=== PATIENT | female | born 1950 | race American Indian/Alaskan Native ===

== ENCOUNTER 2018-09-10 21:10 | Observation (INO) | payer MEDICARE, MEDICAID ==
--- NOTE | 2018-09-10 21:20 | C.PDOC ---
History Of Present Illness Patient is sent to the ED from [facility] for evaluation of hemoglobin of 7.7. Patient denies any medical complaints. Time Seen by Provider: 09/10/18 21:19 Chief Complaint (Nursing): Abnormal Labs History Per: Patient History/Exam Limitations: no limitations Onset/Duration Of Symptoms: Days Current Symptoms Are (Timing): Still Present Recent travel outside of the [place]: No Additional History Per: Patient Past Medical History Reviewed: Historical Data, Nursing Documentation, Vital Signs Vital Signs: Last Vital Signs Temp 98.7 F 09/10/18 21:18 Pulse 83 09/10/18 21:18 Resp 16 09/10/18 21:18 BP 140/77 09/10/18 21:18 Pulse Ox 100 09/10/18 21:18 - Medical History PMH: HTN, Hypothyroidism, Schizophrenia Surgical History: No Surg Hx Family History: States: Unknown Family Hx - Social History Hx Alcohol Use: No Hx Substance Use: No Review Of Systems Constitutional: Negative for: Fever, Chills Cardiovascular: Negative for: Chest Pain, Palpitations Respiratory: Negative for: Shortness of Breath Gastrointestinal: Negative for: Nausea, Vomiting, Abdominal Pain Neurological: Negative for: Weakness, Numbness, Headache, Dizziness Physical Exam - Physical Exam Appears: Non-toxic Skin: Warm, Dry, Pale Head: Normacephalic Eye(s): bilateral: Conjunctiva Pale Oral Mucosa: Moist Teeth: Other (poor dentition) Neck: Trachea Midline, Supple Chest: Symmetrical Cardiovascular: Rhythm Regular Respiratory: No Rales, No Rhonchi, No Wheezing Gastrointestinal/Abdominal: Soft, No Tenderness, No Distention, No Guarding, No Rebound Rectal: Other (black tarry stool) Back: No CVA Tenderness Extremity: Capillary Refill (< 2 seconds) Extremity: Right: Other (heel pressure ulcer), Bilateral: Atraumatic, Normal ROM Pulses: Left Dorsalis Pedis: Normal, Right Dorsalis Pedis: Normal Neurological/Psych: Oriented x3 Gait: Unable To Assess ED Course And Treatment - Laboratory Results Result Diagrams: 09/10/18 22:10 09/10/18 22:10 ECG: Interpreted By Me, Viewed By Me ECG Rhythm: Sinus Rhythm (79), 1st Degree HB, Nonspecific Changes O2 Sat by Pulse Oximetry: 100 (On RA) Pulse Ox Interpretation: Normal - Radiology CXR: Interpreted by Me, Viewed By Me Progress Note: Plan: - Labs. - EKG. - CXR. - UA Disposition Discussed With Dr.: Rajesh Brooke Comment: accepted the pt on his service and took over the care at 11:06 PM Doctor Will See Patient In The: Hospital Counseled Patient/Family Regarding: Studies Performed, Diagnosis - Disposition Disposition: HOSPITALIZED Disposition Time: 21:20 Condition: GUARDED Forms: [facility] (Swedish) - POA Present On Arrival: Pressure Ulcer - Clinical Impression Clinical Impression: Anemia, GI bleed - Scribe Statement The provider has reviewed the documentation as recorded by the Scribe Abhishek Chappell All medical record entries made by the Scribe were at my direction and personally dictated by me. I have reviewed the chart and agree that the record accurately reflects my personal performance of the history, physical exam, medical decision making, and the department course for this patient. I have also personally directed, reviewed, and agree with the discharge instructions and disposition. Decision To Admit - Pt Status Changed To: Hospital Disposition Of: Observation - . Bed Request Type: Telemetry Admitting Physician: Rajesh Brooke Patient Diagnosis: Anemia, GI bleed, Leukopenia
[2018-09-10] MEDS ORDERED: Sodium Chloride 0.9% 1,000 ML IV ONE (21:49)
[2018-09-10] MEDS ORDERED: Pantoprazole 80 MG in Sodium Chloride 0.9% 100 ML IVP SCH (22:00)
[2018-09-10] MEDS ORDERED: Sodium Chloride 0.9% 1,000 ML ONE (22:12)
[2018-09-10 22:13] LABS: BASO % 1.5 % (0.0-2.0); EOS # 0.4 K/uL (0.0-0.7); EOS % 12.7 % (0.0-4.0); HEMOGLOBIN 7.6 g/dL (11.0-16.0); LYMPH # 0.9 K/uL (1.0-4.3); LYMPH % 31.7 % (20.0-40.0); MEAN CELL VOLUME 85.9 fL (81.0-99.0); MEAN CORPUSCULAR HEMOGLOBIN 27.3 pg (27.0-31.0); MEAN CORPUSCULAR HGB CONC 31.8 g/dL (33.0-37.0); MEAN PLATELET VOLUME 9.1 fL (7.2-11.7); MONO # 0.3 K/uL (0.0-0.8); MONO % 12.1 % (0.0-10.0); NEUT # 1.2 K/uL (1.8-7.0); NRBC % 0.1 % (0.0-2.0); RBC 2.77 Mil/uL (3.80-5.20); RED CELL DISTRIBUTION WIDTH 29.5 % (11.5-14.5); WHITE BLOOD COUNT 2.9 K/uL (4.8-10.8)
[2018-09-10 22:25] LABS: INR 1.1; PROTHROMBIN TIME 12.4 SECONDS (9.7-12.2)
[2018-09-10 22:26] LABS: ALBUMIN 3.6 g/dL (3.5-5.0); CALCIUM 9.1 mg/dl (8.6-10.4)
--- NOTE | 2018-09-11 08:31 | RAD ---
Date of service: 09/10/2018 PROCEDURE: CHEST RADIOGRAPH, 1 VIEW HISTORY: SOB COMPARISON: None available. FINDINGS: LUNGS: Clear. PLEURA: No pneumothorax or pleural fluid seen. CARDIOVASCULAR: No aortic atherosclerotic calcification present. Normal. OSSEOUS STRUCTURES: No significant abnormalities. VISUALIZED UPPER ABDOMEN: Normal. OTHER FINDINGS: None. IMPRESSION: No active disease.
--- NOTE | 2018-09-11 09:49 | CP.PCM.CON ---
<JonathanzeyneplivSteve - Last Filed: 09/11/18 13:40> History of Present Illness - History of Present Illness History of Present Illness: GI Fellow PGY4, consult note. Lyudmila Larose is a pleasant 68F who presented from detention with weakness and low Hb. Patient states her legs felt weak, but she denied lightheadedness, dizziness. It was reported her detention sent her to ED for Hb of 7.7. Hb was 7.6 on our initial labs. Patient has been HDS. She states her last bowel movement was 2 days ago, and she did not check the color. ED stated her rectal showed black tarry stool. Her med list shows iron pills, but patient denies taking this medication. She denies chronic NSAID use. Patient states she has had anemia before and a few blood transfusions in the last few months. She states she had EGD at [facility] 3 weeks ago and does not report any findings. Before that, she states she had colonoscopy 2-3 months ago at [facility] and again does not report and findings. 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 PMHx - Iron deficiency anemia, HTN, constipation, psych disorder PSHx - as above SocHx - Denies tobacco, alcohol. Lives at detention. 12pt ROS completed and negative except for above. Past Patient History - Past Social History Smoking Status: Never Smoked - CARDIAC Hx Hypertension: Yes - ENDOCRINE/METABOLIC Hx Hypothyroidism: Yes - INTEGUMENTARY Other/Comment: malignant neoplasm of stomach - GASTROINTESTINAL Hx Constipation: Yes Other/Comment: malignant neoplasm of stomach - PSYCHIATRIC Hx Schizophrenia: Yes Hx Substance Use: No Meds Allergies/Adverse Reactions: Allergies Allergy/AdvReac Type Severity Reaction Status Date / Time No Known Allergies Allergy Verified 09/10/18 23:37 - Medications Medications: Current Medications Pantoprazole Sodium 80 mg/ (Sodium Chloride) 100 mls @ 10 mls/hr IV .Q10H HELEN Physical Exam - Constitutional Appears: Non-toxic, No Acute Distress - Head Exam Head Exam: ATRAUMATIC, NORMAL INSPECTION - Eye Exam Eye Exam: EOMI, Normal appearance - Respiratory Exam Respiratory Exam: Clear to Auscultation Bilateral, NORMAL BREATHING PATTERN - Cardiovascular Exam Cardiovascular Exam: REGULAR RHYTHM, +S1, +S2, Systolic Murmur - GI/Abdominal Exam GI & Abdominal Exam: Normal Bowel Sounds, Organomegaly, Soft. absent: Tenderness - Rectal Exam Rectal Exam: Hemorrhoids. absent: Black Stool, Bloody Stool - Extremities Exam Extremities exam: Negative for: normal inspection, pedal edema - Neurological Exam Neurological exam: Alert, CN II-XII Intact, Oriented x3 - Psychiatric Exam Psychiatric exam: Normal Affect, Normal Mood - Skin Skin Exam: Dry, Normal Color Results - Vital Signs Recent Vital Signs: Last Vital Signs Temp 97.9 F 09/11/18 09:40 Pulse 63 09/11/18 09:40 Resp 18 09/11/18 09:40 BP 172/91 H 09/11/18 09:40 Pulse Ox 100 09/11/18 07:00 - Labs Result Diagrams: 09/10/18 22:10 09/10/18 22:10 Labs: Laboratory Results - last 24 hr 09/10/18 09/10/18 09/10/18 21:53 22:10 22:10 WBC 2.9 L RBC 2.77 L Hgb 7.6 L Hct 23.8 L MCV 85.9 MCH 27.3 MCHC 31.8 L RDW 29.5 H Plt Count 204 MPV 9.1 Neut % (Auto) 42.0 L Lymph % (Auto) 31.7 [place] % (Auto) 12.1 H Eos % (Auto) 12.7 H Baso % (Auto) 1.5 Neut # (Auto) 1.2 L Lymph # (Auto) 0.9 L [place] # (Auto) 0.3 Eos # (Auto) 0.4 Baso # (Auto) 0.0 PT 12.4 H INR 1.1 APTT 35.0 H Sodium Potassium Chloride Carbon Dioxide Anion Gap BUN Creatinine Est GFR ( Amer) Est GFR (Non-Af Amer) Random Glucose Calcium Total Bilirubin AST ALT Alkaline Phosphatase Total Protein Albumin Globulin Albumin/Globulin Ratio Stool Occult Blood Positive H Blood Type Antibody Screen Antibody Identification 09/10/18 09/10/18 22:10 22:10 WBC RBC Hgb Hct MCV MCH MCHC RDW Plt Count MPV Neut % (Auto) Lymph % (Auto) [place] % (Auto) Eos % (Auto) Baso % (Auto) Neut # (Auto) Lymph # (Auto) [place] # (Auto) Eos # (Auto) Baso # (Auto) PT INR APTT Sodium 136 Potassium 4.3 Chloride 106 Carbon Dioxide 27 Anion Gap 8 L BUN 27 H Creatinine 1.2 Est GFR ( Amer) 54 Est GFR (Non-Af Amer) 45 Random Glucose 95 Calcium 9.1 Total Bilirubin 0.4 AST 19 ALT 8 L Alkaline Phosphatase 54 Total Protein 7.2 Albumin 3.6 Globulin 3.7 Albumin/Globulin Ratio 1.0 Stool Occult Blood Blood Type O POSITIVE Antibody Screen Positive Antibody Identification Anti Jka Assessment & Plan - Assessment and Plan (Free Text) Assessment: #Chronic anemia #Suspected iron deficiency anemia #Positive occult stool #Constipation #Psych disorder PLAN: -No obvious active GI bleed. Rectal negative. Patient reports recent EGD and colonoscopy at [facility] and [facility] and reportedly normal. -Continue to monitor Hb -1u pRBC ordered -Recommend PPI IV daily -Avoid blood thinners and NSAIDs at this time. -Patient refused EGD today. -Start diet -Will obtain records Case to be discussed with Dr. Ahuja, see attestation. - Date & Time Date: 09/11/18 Time: 09:51 <Pradip Ahuja Y - Last Filed: 09/11/18 14:29> Meds - Medications Medications: Current Medications Amlodipine Besylate (Norvasc) 10 mg PO DAILY HELEN Aripiprazole (Abilify) 15 mg PO DAILY [facility] Home Med (Iron Sucrose [Venofer]) 100 mg IV DAILY HELEN Pantoprazole Sodium 80 mg/ (Sodium Chloride) 100 mls @ 10 mls/hr IV .Q10H HELEN Last Admin: 09/11/18 12:27 Dose: 10 mls/hr Magnesium Hydroxide (Milk Of Magnesia) 30 ml PO DAILY HELEN Pantoprazole Sodium (Protonix Ec Tab) 40 mg PO DAILY [facility] Results - Vital Signs Recent Vital Signs: Last Vital Signs Temp 98.5 F 09/11/18 12:08 Pulse 87 09/11/18 12:08 Resp 18 09/11/18 12:08 BP 175/97 H 09/11/18 12:08 Pulse Ox 100 09/11/18 07:00 - Labs Result Diagrams: 09/10/18 22:10 09/10/18 22:10 Labs: Laboratory Results - last 24 hr 09/10/18 09/10/18 09/10/18 21:53 22:10 22:10 WBC 2.9 L RBC 2.77 L Hgb 7.6 L Hct 23.8 L MCV 85.9 MCH 27.3 MCHC 31.8 L RDW 29.5 H Plt Count 204 MPV 9.1 Neut % (Auto) 42.0 L Lymph % (Auto) 31.7 [place] % (Auto) 12.1 H Eos % (Auto) 12.7 H Baso % (Auto) 1.5 Neut # (Auto) 1.2 L Lymph # (Auto) 0.9 L [place] # (Auto) 0.3 Eos # (Auto) 0.4 Baso # (Auto) 0.0 PT 12.4 H INR 1.1 APTT 35.0 H Sodium Potassium Chloride Carbon Dioxide Anion Gap BUN Creatinine Est GFR ( Amer) Est GFR (Non-Af Amer) Random Glucose Calcium Total Bilirubin AST ALT Alkaline Phosphatase Total Protein Albumin Globulin Albumin/Globulin Ratio Urine Color Urine Clarity Urine pH Ur Specific [place] Urine Protein Urine Glucose (UA) Urine Ketones Urine Blood Urine Nitrate Urine Bilirubin Urine Urobilinogen Ur Leukocyte Esterase Urine RBC (Auto) Ur Squamous Epith Cells Urine Bacteria Stool Occult Blood Positive H Blood Type Antibody Screen Antibody Identification 09/10/18 09/10/18 09/11/18 22:10 22:10 11:55 WBC RBC Hgb Hct MCV MCH MCHC RDW Plt Count MPV Neut % (Auto) Lymph % (Auto) [place] % (Auto) Eos % (Auto) Baso % (Auto) Neut # (Auto) Lymph # (Auto) [place] # (Auto) Eos # (Auto) Baso # (Auto) PT INR APTT Sodium 136 Potassium 4.3 Chloride 106 Carbon Dioxide 27 Anion Gap 8 L BUN 27 H Creatinine 1.2 Est GFR ( Amer) 54 Est GFR (Non-Af Amer) 45 Random Glucose 95 Calcium 9.1 Total Bilirubin 0.4 AST 19 ALT 8 L Alkaline Phosphatase 54 Total Protein 7.2 Albumin 3.6 Globulin 3.7 Albumin/Globulin Ratio 1.0 Urine Color Straw Urine Clarity Clear Urine pH 6.0 Ur Specific [place] 1.010 Urine Protein Negative Urine Glucose (UA) Normal Urine Ketones Negative Urine Blood Negative Urine Nitrate Negative Urine Bilirubin Negative Urine Urobilinogen Normal Ur Leukocyte Esterase Neg Urine RBC (Auto) < 1 Ur Squamous Epith Cells < 1 Urine Bacteria Rare Stool Occult Blood Blood Type O POSITIVE Antibody Screen Positive Antibody Identification Anti Pattika Attending/Attestation - Attestation I have personally seen and examined this patient.: Yes I have fully participated in the care of the patient.: Yes I have reviewed all pertinent clinical information: Yes Notes (Text): 09/11/18 14:23 I have seen and examined patient with GI fellow. Agree with above documentation with the following additions. In brief, this is a 68 year old female with history of HTN, iron deficiency anemia who is sent from detention for evaluation of weakness. She reports feeling extreme lower extremity weakness and fatigue but denies syncope, abdominal pain, nausea, vomiting, fever/chills, weight loss, melena, or change in recent bowel habits. She apparently had a recent colonoscopy at [facility] 3 months ago and an EGD at [facility] 1 month ago without significant findings as per patient. Family history: reviewed, denies history of GI malignancy HTN Iron deficiency anemia Stool occult blood positive - Diet as tolerated - Patient scheduled to receive PRBC transfusion, continue to monitor H/H - Rectal exam performed today shows light brown soft stool without presence of palpable lesions - Patient was offered EGD today to rule out potential upper GI bleeding source, however she declined procedure. Risks of this were discussed with patient in detail and she understands and is willing to accept these risks. - Will attempt to obtain endoscopic reports from [facility] and [facility] - Will continue to monitor patient clinical course
[2018-09-11 12:24] LABS: SQUAMOUS EPITHIAL < 1 /hpf (0-5); URINE BACTERIA RARE (<OCC); URINE BILIRUBIN NEGATIVE (NEGATIVE); URINE BLOOD NEGATIVE (NEGATIVE); URINE CLARITY Clear (Clear); URINE COLOR Straw (YELLOW); URINE GLUCOSE (UA) NORMAL (Normal); URINE LEUKOCYTE ESTERASE NEG Leu/uL (Negative); URINE PROTEIN NEGATIVE (NEGATIVE); URINE UROBILINOGEN NORMAL mg/dL (0.2-1.0)
[2018-09-11] MEDS: Pantoprazole 80 MG in Sodium Chloride 0.9% 100 ML IV SCH ×2 (12:27→18:16)
[2018-09-11] MEDS ORDERED: Pantoprazole 40 mg EC Tab PO SCH (13:00)
[2018-09-11] MEDS: Magnesium Hydroxide Susp 30 ml UD PO SCH (14:50)
--- NOTE | 2018-09-11 16:23 | CP.PCM.HP ---
History of Present Illness - History of Present Illness History of Present Illness: Patient is 68-year-old non-smoker non-EtOH abuser with history of anemia history of hypertension history of some psych disorders on some medications came in because of her with history of low hemoglobin lethargy and weakness especially bilateral lower limb so patient came to the emergency room patient denies any syncope denies any fall denies any trauma denies any nausea vomiting denies any chest pain Patient in the emergency room was 7.6 which was same as before eventually patient had a bloody movements recently so came to the emergency room and eventually patient was admitted patient also on the iron pill and patient has a black stools patient is a 9 pill secondary to iron tablet Patient had a colonoscopy done to 3 weeks ago at [facility] [place] reports not aware Status post patient seen by a GI doctor Patient refused endoscopy today 12 points of review of system negative Present on Admission - Present on Admission Any Indicators Present on Admission: No Review of Systems - Constitutional Constitutional: As Per HPI - EENT Eyes: As Per HPI Ears: As Per HPI Nose/Mouth/Throat: As Per HPI - Breasts Breasts: As Per HPI - Cardiovascular Cardiovascular: As Per HPI - Respiratory Respiratory: As Per HPI - Gastrointestinal Gastrointestinal: As Per HPI Past Patient History - Past Social History Smoking Status: Never Smoked - CARDIAC Hx Hypertension: Yes - ENDOCRINE/METABOLIC Hx Hypothyroidism: Yes - INTEGUMENTARY Other/Comment: malignant neoplasm of stomach - GASTROINTESTINAL Hx Constipation: Yes Other/Comment: malignant neoplasm of stomach - PSYCHIATRIC Hx Schizophrenia: Yes Hx Substance Use: No Meds Allergies/Adverse Reactions: Allergies Allergy/AdvReac Type Severity Reaction Status Date / Time No Known Allergies Allergy Verified 09/10/18 23:37 Physical Exam - Constitutional Appears: Well - Head Exam Head Exam: ATRAUMATIC - Eye Exam Eye Exam: EOMI Pupil Exam: Fixed - ENT Exam ENT Exam: Mucous Membranes Moist - Neck Exam Neck exam: Positive for: Full Rom - Respiratory Exam Respiratory Exam: Decreased Breath Sounds - Cardiovascular Exam Cardiovascular Exam: REGULAR RHYTHM, +S1, +S2 - GI/Abdominal Exam GI & Abdominal Exam: Diminished Bowel Sounds, Distended, Soft - Rectal Exam Rectal Exam: Deferred - Back Exam Back exam: NORMAL INSPECTION - Neurological Exam Neurological exam: Oriented x3 Results - Vital Signs Recent Vital Signs: Last Vital Signs Temp 98.5 F 09/11/18 12:08 Pulse 87 09/11/18 12:08 Resp 18 04/26/19 12:08 BP 175/97 H 09/11/18 12:08 Pulse Ox 100 09/11/18 07:00 - Labs Result Diagrams: 09/10/18 22:10 09/10/18 22:10 Labs: Laboratory Results - last 24 hr 09/10/18 09/10/18 09/10/18 21:53 22:10 22:10 WBC 2.9 L RBC 2.77 L Hgb 7.6 L Hct 23.8 L MCV 85.9 MCH 27.3 MCHC 31.8 L RDW 29.5 H Plt Count 204 MPV 9.1 Neut % (Auto) 42.0 L Lymph % (Auto) 31.7 [place] % (Auto) 12.1 H Eos % (Auto) 12.7 H Baso % (Auto) 1.5 Neut # (Auto) 1.2 L Lymph # (Auto) 0.9 L [place] # (Auto) 0.3 Eos # (Auto) 0.4 Baso # (Auto) 0.0 PT 12.4 H INR 1.1 APTT 35.0 H Sodium Potassium Chloride Carbon Dioxide Anion Gap BUN Creatinine Est GFR ( Amer) Est GFR (Non-Af Amer) Random Glucose Calcium Total Bilirubin AST ALT Alkaline Phosphatase Total Protein Albumin Globulin Albumin/Globulin Ratio Urine Color Urine Clarity Urine pH Ur Specific [place] Urine Protein Urine Glucose (UA) Urine Ketones Urine Blood Urine Nitrate Urine Bilirubin Urine Urobilinogen Ur Leukocyte Esterase Urine RBC (Auto) Ur Squamous Epith Cells Urine Bacteria Stool Occult Blood Positive H Blood Type Antibody Screen Antibody Identification 09/10/18 09/10/18 09/11/18 22:10 22:10 11:55 WBC RBC Hgb Hct MCV MCH MCHC RDW Plt Count MPV Neut % (Auto) Lymph % (Auto) [place] % (Auto) Eos % (Auto) Baso % (Auto) Neut # (Auto) Lymph # (Auto) [place] # (Auto) Eos # (Auto) Baso # (Auto) PT INR APTT Sodium 136 Potassium 4.3 Chloride 106 Carbon Dioxide 27 Anion Gap 8 L BUN 27 H Creatinine 1.2 Est GFR ( Amer) 54 Est GFR (Non-Af Amer) 45 Random Glucose 95 Calcium 9.1 Total Bilirubin 0.4 AST 19 ALT 8 L Alkaline Phosphatase 54 Total Protein 7.2 Albumin 3.6 Globulin 3.7 Albumin/Globulin Ratio 1.0 Urine Color Straw Urine Clarity Clear Urine pH 6.0 Ur Specific [place] 1.010 Urine Protein Negative Urine Glucose (UA) Normal Urine Ketones Negative Urine Blood Negative Urine Nitrate Negative Urine Bilirubin Negative Urine Urobilinogen Normal Ur Leukocyte Esterase Neg Urine RBC (Auto) < 1 Ur Squamous Epith Cells < 1 Urine Bacteria Rare Stool Occult Blood Blood Type O POSITIVE Antibody Screen Positive Antibody Identification Anti Jka Assessment & Plan - Assessment and Plan (Free Text) Plan: Plan hemoglobin 7.6 23.8 Monitor H&H IV Protonix Patient's rectal examination is negative Patient reports to have a very recent EGD and colonoscopy at [facility] we will try to obtain report although patient claims its normal 1 unit of PRBCs ordered patient patient refused EGD today Continue amlodipine Continue Abilify Continue IV Venofer IV Protonix Magnesium hydroxide CBC CMP daily Monitor for the bleeding
[2018-09-11 17:29] VITALS: RESP 20
[2018-09-11] MEDS: Ferric Sodium Gluconat Complex 62.5 mg/5 ml Vial IVPB SCH (17:44)
[2018-09-12 01:33] VITALS: O2SAT 98
[2018-09-12] MEDS: Pantoprazole 80 MG in Sodium Chloride 0.9% 100 ML IV SCH (04:00)
[2018-09-12 07:49] LABS: BASO % 0.7 % (0.0-2.0); EOS # 0.3 K/uL (0.0-0.7); EOS % 11.1 % (0.0-4.0); HEMOGLOBIN 8.1 g/dL (11.0-16.0); LYMPH # 0.8 K/uL (1.0-4.3); LYMPH % 27.2 % (20.0-40.0); MEAN CELL VOLUME 86.4 fL (81.0-99.0); MEAN CORPUSCULAR HGB CONC 32.4 g/dL (33.0-37.0); MONO # 0.3 K/uL (0.0-0.8); MONO % 12.2 % (0.0-10.0); NEUT # 1.4 K/uL (1.8-7.0); NEUT % 48.8 % (50.0-75.0); RBC 2.89 Mil/uL (3.80-5.20); RED CELL DISTRIBUTION WIDTH 27.6 % (11.5-14.5); WHITE BLOOD COUNT 2.8 K/uL (4.8-10.8)
[2018-09-12] MEDS: Magnesium Hydroxide Susp 30 ml UD PO SCH (09:42)
[2018-09-12] MEDS: Ferric Sodium Gluconat Complex 62.5 mg/5 ml Vial IVPB SCH (09:42)
[2018-09-12] MEDS ORDERED: IRON SUCROSE 100 MG IV SCH (10:00)
--- NOTE | 2018-09-12 10:43 | CARD ---
APPROVED REPORT Date of service: 09/10/2018 EKG Measurement Heart [id number] <Conclusion> Normal sinus rhythm Minimal voltage criteria for LVH, may be normal variant Nonspecific T wave abnormality Abnormal ECG
[2018-09-12 11:38] LABS: BASO % 0.5 % (0.0-2.0); EOS # 0.3 K/uL (0.0-0.7); EOS % 9.5 % (0.0-4.0); HEMOGLOBIN 9.4 g/dL (11.0-16.0); LYMPH # 0.8 K/uL (1.0-4.3); LYMPH % 28.2 % (20.0-40.0); MEAN CELL VOLUME 86.6 fL (81.0-99.0); MEAN CORPUSCULAR HEMOGLOBIN 27.3 pg (27.0-31.0); MEAN CORPUSCULAR HGB CONC 31.5 g/dL (33.0-37.0); MEAN PLATELET VOLUME 9.1 fL (7.2-11.7); MONO # 0.4 K/uL (0.0-0.8); MONO % 12.9 % (0.0-10.0); NEUT # 1.5 K/uL (1.8-7.0); NEUT % 48.9 % (50.0-75.0); RBC 3.45 Mil/uL (3.80-5.20); RED CELL DISTRIBUTION WIDTH 27.7 % (11.5-14.5)
--- NOTE | 2018-09-12 13:12 | CP.PCM.DIS ---
Provider - Provider Date of Admission: 09/10/18 23:05 Attending physician: Rohan Brooke MD Consults: 09/10/18 23:33 Gastroenterology Consult Routine Comment: Consulting Provider: Pradip Ahuja Consulting Physician: Pradip Ahuja Reason for Consult: gi bleed Time Spent in preparation of Discharge (in minutes): 30 Hospital Course - Lab Results Lab Results: Most Recent Lab Values WBC 3.0 K/uL (4.8-10.8) L 09/12/18 11:15 RBC 3.45 Mil/uL (3.80-5.20) L 09/12/18 11:15 Hgb 9.4 g/dL (11.0-16.0) L 09/12/18 11:15 Hct 29.9 % (34.0-47.0) L 09/12/18 11:15 MCV 86.6 fL (81.0-99.0) 09/12/18 11:15 MCH 27.3 pg (27.0-31.0) 09/12/18 11:15 MCHC 31.5 g/dL (33.0-37.0) L 09/12/18 11:15 RDW 27.7 % (11.5-14.5) H 09/12/18 11:15 Plt Count 224 K/uL (130-400) 09/12/18 11:15 MPV 9.1 fL (7.2-11.7) 09/12/18 11:15 Neut % (Auto) 48.9 % (50.0-75.0) L 09/12/18 11:15 Lymph % (Auto) 28.2 % (20.0-40.0) 09/12/18 11:15 [place] % (Auto) 12.9 % (0.0-10.0) H 09/12/18 11:15 Eos % (Auto) 9.5 % (0.0-4.0) H 09/12/18 11:15 Baso % (Auto) 0.5 % (0.0-2.0) 09/12/18 11:15 Neut # (Auto) 1.5 K/uL (1.8-7.0) L 09/12/18 11:15 Lymph # (Auto) 0.8 K/uL (1.0-4.3) L 09/12/18 11:15 [place] # (Auto) 0.4 K/uL (0.0-0.8) 09/12/18 11:15 Eos # (Auto) 0.3 K/uL (0.0-0.7) 09/12/18 11:15 Baso # (Auto) 0.0 K/uL (0.0-0.2) 09/12/18 11:15 Differential Comment 09/12/18 11:15 PT 12.4 SECONDS (9.7-12.2) H 09/10/18 22:10 INR 1.1 09/10/18 22:10 APTT 35.0 SECONDS (21-34) H 09/10/18 22:10 Sodium 136 mmol/L (132-148) 09/10/18 22:10 Potassium 4.3 mmol/L (3.6-5.2) 09/10/18 22:10 Chloride 106 mmol/L (98-107) 09/10/18 22:10 Carbon Dioxide 27 mmol/L (22-30) 09/10/18 22:10 Anion Gap 8 (10-20) L 09/10/18 22:10 BUN 27 mg/dL (7-17) H 09/10/18 22:10 Creatinine 1.2 mg/dL (0.7-1.2) 09/10/18 22:10 Est GFR ( Amer) 54 09/10/18 22:10 Est GFR (Non-Af Amer) 45 09/10/18 22:10 Random Glucose 95 mg/dL (65-105) 09/10/18 22:10 Calcium 9.1 mg/dl (8.6-10.4) 09/10/18 22:10 Total Bilirubin 0.4 mg/dL (0.2-1.3) 09/10/18 22:10 AST 19 U/L (14-36) 09/10/18 22:10 ALT 8 U/L (9-52) L 09/10/18 22:10 Alkaline Phosphatase 54 U/L (38-126) 09/10/18 22:10 Total Protein 7.2 g/dL (6.3-8.3) 09/10/18 22:10 Albumin 3.6 g/dL (3.5-5.0) 09/10/18 22:10 Globulin 3.7 gm/dL (2.2-3.9) 09/10/18 22:10 Albumin/Globulin Ratio 1.0 (1.0-2.1) 09/10/18 22:10 Urine Color Straw (YELLOW) 09/11/18 11:55 Urine Clarity Clear (Clear) 09/11/18 11:55 Urine pH 6.0 (5.0-8.0) 09/11/18 11:55 Ur Specific [place] 1.010 (1.003-1.030) 09/11/18 11:55 Urine Protein Negative mg/dL (NEGATIVE) 09/11/18 11:55 Urine Glucose (UA) Normal mg/dL (Normal) 09/11/18 11:55 Urine Ketones Negative mg/dL (NEGATIVE) 09/11/18 11:55 Urine Blood Negative (NEGATIVE) 09/11/18 11:55 Urine Nitrate Negative (NEGATIVE) 09/11/18 11:55 Urine Bilirubin Negative (NEGATIVE) 09/11/18 11:55 Urine Urobilinogen Normal mg/dL (0.2-1.0) 09/11/18 11:55 Ur Leukocyte Esterase Neg [place]/uL (Negative) 09/11/18 11:55 Urine RBC (Auto) < 1 /hpf (0-3) 09/11/18 11:55 Ur Squamous Epith Cells < 1 /hpf (0-5) 09/11/18 11:55 Urine Bacteria Rare (<OCC) 09/11/18 11:55 Stool Occult Blood Positive (NEGATIVE) H 09/10/18 21:53 Blood Type O POSITIVE 09/10/18 22:10 Antibody Screen Positive 09/10/18 22:10 Antibody Identification Anti E Anti Jka 09/10/18 22:10 Antibody Identification Anti E Anti Jka 09/10/18 22:10 - Hospital Course Hospital Course: Patient refused endoscopy and colonoscopy although patient had endoscopy [facility] colonoscopy also which was normal patient decided to patient refused eventually patient wante dto go home pt stated cleared by cleared by Dr. TAYLOR Patient advised to see the primary doctor within 48 hours patient advised to come back patient is on iron pills Home medication reconciled Plan of care discussed Medication prescriptions given to the patient's Discussed with the staff Discharge Exam - Head Exam Head Exam: ATRAUMATIC - Eye Exam Eye Exam: EOMI, Normal appearance, PERRL Pupil Exam: NORMAL ACCOMODATION, PERRL - Respiratory Exam Respiratory Exam: Decreased Breath Sounds - Cardiovascular Exam Cardiovascular Exam: REGULAR RHYTHM, +S1, +S2 - GI/Abdominal Exam GI & Abdominal Exam: Diminished Bowel Sounds, Soft - Rectal Exam Rectal Exam: Deferred Discharge Plan - Follow Up Plan Condition: GUARDED Disposition: REHAB FACILITY/REHAB UNIT Instructions: Anemia Caused by Low Iron, Heart Healthy Diet, Gastrointestinal Bleeding Additional Instructions: Please call Dr. Mistry upon patient arrival to the facility Please f/u with Dr. Ahuja office out patient for further work up- call and make appointment Please continue medication as per med. rec. Please repeat cbc on Friday Referrals: Pradip Ahuja MD [Staff Provider] - Rajesh Brooke MD [Staff Provider] -
--- NOTE | 2018-09-12 13:18 | CP.PCM.PN ---
Subjective - Date & Time of Evaluation Date of Evaluation: 09/12/18 Time of Evaluation: 13:14 - Subjective Subjective: Patient seen and examined, resting comfortably in bed. No acute events overnight, she denies abdominal pain, nausea, vomiting, fever/chills. Tolerating PO diet without difficulty, reports one brown colored bowel movement yesterday. 12 point review of systems performed, negative aside from mentioned above. Objective - Vital Signs/Intake and Output Vital Signs (last 24 hours): Temp Pulse Resp BP Pulse Ox 98.0 F 96 H 20 162/96 H 98 09/12/18 07:00 09/12/18 07:00 09/12/18 07:00 09/12/18 07:00 09/12/18 11:35 - Medications Medications: Current Medications Amlodipine Besylate (Norvasc) 10 mg PO DAILY [facility] Last Admin: 09/12/18 09:41 Dose: 10 mg Aripiprazole (Abilify) 15 mg PO DAILY [facility] Last Admin: 09/12/18 09:41 Dose: 15 mg Ferric Sodium Gluconate Complex (Ferrlecit) 125 mg IVPB DAILY [facility] Stop: 09/19/18 16:46 Last Admin: 09/12/18 09:42 Dose: 125 mg Pantoprazole Sodium 80 mg/ (Sodium Chloride) 100 mls @ 10 mls/hr IV .Q10H [facility] Last Admin: 09/12/18 04:00 Dose: 10 mls/hr Magnesium Hydroxide (Milk Of Magnesia) 30 ml PO DAILY [facility] Last Admin: 09/12/18 09:42 Dose: 30 ml Pantoprazole Sodium (Protonix Ec Tab) 40 mg PO DAILY [facility] - Labs Labs: 09/12/18 11:15 09/10/18 22:10 PT 12.4 SECONDS (9.7-12.2) H 09/10/18 22:10 INR 1.1 09/10/18 22:10 APTT 35.0 SECONDS (21-34) H 09/10/18 22:10 - Constitutional Appears: Non-toxic, No Acute Distress - Head Exam Head Exam: NORMAL INSPECTION - Eye Exam Eye Exam: EOMI, Normal appearance - ENT Exam ENT Exam: Mucous Membranes Moist - Respiratory Exam Respiratory Exam: Clear to Ausculation Bilateral - Cardiovascular Exam Cardiovascular Exam: +S1, +S2 - GI/Abdominal Exam GI & Abdominal Exam: Soft, Normal Bowel Sounds Additional comments: non tender to palpation in four quadrants - Extremities Exam Extremities Exam: Normal Inspection - Skin Skin Exam: Dry, Intact, Normal Color, Warm Assessment and Plan - Assessment and Plan (Free Text) Assessment: HTN Iron deficiency anemia Stool occult blood positive Weakness, resolved Plan: - Diet as tolerated - H/H stable, s/p PRBC transfusion therapy, continue to monitor - Patient without features of active bleeding, request sent to [facility] and [facility] for prior endoscopic records - Patient refused EGD evaluation yesterday. Suggest additional outpatient follow up and continued monitoring, currently hemodynamically stable. - No further planned GI intervention, will sign off case. Please reconsult as necessary, thank you.
[2018-09-12 17:18] VITALS: BP 139/91; PULSE 69; TEMP 98.7
== END 2018-09-12 19:50 ==
LOC: C.ER 21:10 → C.9E 23:05 → C.6T 09-11 00:21
PROVIDERS: ADMIT Internal Medicine Nephrology; ATTEND Internal Medicine Nephrology
DX: D50.9 Iron deficiency anemia, unspecified (principal); K92.2 Gastrointestinal hemorrhage, unspecified; D72.819 Decreased white blood cell count, unspecified; K59.00 Constipation, unspecified; E03.9 Hypothyroidism, unspecified; I10 Essential (primary) hypertension; F20.9 Schizophrenia, unspecified; Z85.028 Personal history of other malignant neoplasm of stomach; Z53.29 Procedure and treatment not carried out because of patient's decision for other reasons
CPT/HCPCS: 36415; 36430; 71045; 80053; 81001; 85025; 85610; 85730; 86850; 86870; 86900; 86905; 86920; 86922; 93005; 96365; 96375; 96376; 97116; 97161; 99283; C9113; G0328; G0378; G8978; G8979; G8980; J2916; J7030; P9051